=== PATIENT | male | born 1965 | race Caucasian/White ===

== ENCOUNTER 2025-07-03 10:17 | Outpatient (REF) | payer MEDICAID, SELFPAY ==
--- OUTSIDE RECORDS SUMMARY | 2025-07-03 11:05 | XMS_ITS | Clinical Summary ---
Author Organization [facility] ity Address [address] [place] [address] Care Team Providers Care Archives Technician Name Role Phone Unavailable Primary Care Provider Unavailabl e Social History Tobacco Use Types Packs/Day Years Used Date Smoking Tobacco: Never Assessed Sex and Gender Information Value Date Recorded Sex Assigned at Not on file Legal Sex Male 10:44 AM EST Gender Identity Not on file Sexual Orientation Not on file Plan of Treatment Health Maintenance Due Date Last Done Comments DTaP,Tdap,and Td Vaccines (1 - Tdap) 1983 Pneumococcal Vaccine: 50+ Ye ars (1 of 1 - PCV) 2014 Zoster Vaccines (1 of 2) 2014 COVID-19 Vaccine (1 - 2023-2 5 season) 2024 Depression Screening 11/21/2024 Influenza Vaccine (#1) 2025 RSV Immunization Adult Patie nts (1 - 1-dose 75+ series) 2039 HIB Vaccines Aged Out No longer eligi ble based on patient's age to complete this topic HPV Vaccines Aged Out No longer eligi ble based on patient's age to complete this topic Hepatitis A Vaccines Aged Out No long er eligible based on patient's age to complete this topic Hepatitis B Vaccines Aged Out No long er eligible based on patient's age to complete this topic IPV Vaccines Aged Out No longer eligi ble based on patient's age to complete this topic MMR Vaccines Aged Out No longer eligi ble based on patient's age to complete this topic Meningococcal ACWY Vaccine Aged Out N o longer eligible based on patient's age to complete this topic Meningococcal B Vaccine Aged Out No l onger eligible based on patient's age to complete this topic RSV Immunization Patients Un graham 20 months Aged Out No longer eligible b ased on patient's age to complete this topic Varicella Vaccines Aged Out No longer eligible based on patient's age to complete this topic
--- OUTSIDE RECORDS SUMMARY | 2025-07-03 11:05 | XMS_ITS | Clinical Summary ---
Author Organization [facility] Address [address] [place] [address] Care Team Providers Care Sales Agent Business Services Name Role Phone Aida Novoa PA-C Primary Care Provider [phone] Source Comments PLEASE NOTE, if this patient is a minor, it may be UNLAWFUL to discuss sensitive information that is contained in these records (such as FAMILY PLANNING, MENTAL HEALTH or SUBSTANCE ABUSE) with the minor patient's parent or other person without the patient's specific authorization.[facility] Allergies No known active allergies Medications blood-glucose meter monitoring kitIndications:Juanita betes mellitus without complication ([facility]) as needed for blood glucose monitoring Dispense Freeystyle 1 Each 03/04/20 21 Active lancing device miscIndications:Di abetes mellitus without complication ([facility]) 1 Device by miscellaneous route once daily 1 Each 1 03/04/20 21 Active lancets 28 gaugeIndications:D iabetes mellitus without complication ([facility]) USE DIRECTED TO TEST BLOOD SUGAR DAILY 100 Each 1 05/06/20 22 Active lisinopriL 10 mg tabletIndications: Essential hypertension, benign TAKE 1 TABLET BY MOUTH ONCE DAILY 28 Tablet 1 07/30/20 22 Active cholecalciferol (VITAMIN D3) 50 mcg (2,000 unit) capsule Take 125 mcg by mouth once daily 11/24/19 23 Active prazosin (MINIPRESS) 1 mg capsule Take 1 mg by mouth every evening 11/24/19 23 Active PURE COMFORT SAFETY LANCETS 30 gaugeIndications:D iabetes mellitus without complication ([facility]) CHECK GLUCOSE ONCE DAILY 100 Each 3 12/20/19 23 Active metFORMIN (GLUCOPHAGE) 1,000 mg tablet Take 1 Tablet by mouth 2 (two) times daily 180 Tablet 04/18/20 Active glyBURIDE (DIABETA) 2.5 mg tabletIndications: Diabetes mellitus without complication ([facility]) Take 1 Tablet by mouth once daily with breakfast 90 Tablet 04/18/20 Active ALCOHOL PREP PADS USE DIRECTED TO TEST BLOOD SUGAR 100 Each 2 05/09/20 Active blood sugar diagnostic (FREESTYLE LITE STRIPS) stripsIndications: Diabetes mellitus without complication ([facility]) Dx. E11.65 FREESTYLE LITE, USE TO CHECK BLOOD SUGAR ONCE DAILY 100 Each 3 10/25/20 Active simvastatin (ZOCOR) 10 mg tabletIndications: Mixed hyperlipidemia WYATT TRI TABLETA DIARIAMENTE EN LA NOCHE 30 Tablet 02/07/20 Active Active Problems Problem Noted Date Diagnosed Date Class 1 obesity due to exces s calories with serious comorbidity and body mass index (BMI) of 34.0 to 34.9 in adult 04/12/2023 Depression 01/12/2023 Vitamin D deficiency 01/12/2023 Essential hypertension, benign 03/04/2021 Uncontrolled type 2 diabetes mellitus with hyperglycemia ([facility]) 03/04/2021 Alcohol use disorder, moderate ([facility]) 0 03/04/2021 Overview (03/04/2021): Follows psych, therapist Yanique Rojas [phone] Resolved Problems Problem Noted Date Diagnosed Date Resolved Date Scalp abscess 11/24/2022 01/12/2023 Immunizations Immunization Administration Dates Next Due PFIZER COVID VACCINE, PURPLE CAP, 12+ 09/19/2021 ,01/26/2021,01/05/2021 PNEUMOCOCCAL CONJUGATE PCV 20 (Prevnar 20) 04/12 Pfizer COVID vaccine, COMIRN ATY, fajardo cap, 12+ 03/02/2022 TDAP 04/12/2023 ZOSTER VACCINE, RECOMBINANT (SHINGRIX) 3,03/04/2021 Family History Medical History Relation Name Comments Diabetes Brother No Known Problems Daughter Alcohol/Drug Abuse Father Diabetes Mother Diabetes Sister No Known Problems Son Relation Name Status Comments Brother Daughter Father Mother Sister Son Social History Tobacco Use Types Packs/Day Years Used Date Smoking Tobacco: Never Smokeless Tobacco: Never Tobacco Cessation:Counseling Given: Not Answered Alcohol Use Standard Drinks/Week Comments Yes 0 (1 standard drink = 0.6 oz pur e alcohol) 6-7 beers per week, not daily Social Connections Answer Date Recorded Connectedness 0 08/01/2024 Financial Resource Strain Answer Date R ecorded Financial Resource Strain 0 2020 Stress Answer Date Recorded Stress 0 03/04/2021 Physical Activity Answer Date Recorded Physical Activity 0 03/04/2021 Food Insecurity Answer Date Recorded Food 0 08/16/2024 Transportation Needs Answer Date Record ed Transportation 0 03/04/2021 Housing Stability Answer Date Recorded Housing 0 03/04/2021 Safety and Environment Answer Date Santiago rded Safety 0 03/04/2021 Utilities Answer Date Recorded Utilities 0 03/04/2021 Employment Answer Date Recorded Stress 0 08/01/2024 Sex and Gender Information Value Date Recorded Sex Assigned at Male 03/04/2021 11:26 AM PDT Legal Sex Male 7:47 AM PST Gender Identity Male 03/04/2021 11:26 AM PDT Sexual Orientation Straight 03/04/2021 11 :26 AM PDT 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 Not on file Not on file Not on file Last Filed Vital Signs Vital Sign Reading Time Taken Comments Blood Pressure 140/80 10/24/2023 3:18 PM EST Pulse 96 09/19/2023 1:51 PM EDT Temperature 36.8 C (98.3 F) 08/24/2023 10:11 AM EDT Respiratory Rate 18 08/24/2023 10:1 1 AM EDT Oxygen Saturation 98% 03/04/2021 2:28 PM EDT Inhaled Oxygen Concentration - - Weight 98.3 kg (216 lb 11.2 oz) 10/24/2023 3:18 PM EST Height 167.6 cm (5' 6 ) 04/12/2023 3:38 PM EDT Body Mass Index 34.98 04/12/2023 3:38 PM EDT Plan of Treatment Health Maintenance Due Date Last Done Comments Anxiety Screening 1964 Dental Examination [address] Colonography 2009 FIT/gFOBT 2009 Fecal DNA 2009 Flexible Sigmoidoscopy 2009 Retinopathy Screening 04/21/2023 04/21/2022 (Managed by Outside Provider) Depression Monitoring 07/13/2023 04/12/2023 , 11/25/2022, 03/04/2021 Hemoglobin A1c 12/20/2023 09/19/2023, 03/22, 04/12/2023 Annual Wellness (Adult): Ind icated (All Coverage) 04/12/2024 04/12/2023, 03/04/2021 Diabetes Foot Exam 04/12/2024 04/12/2023, 0 04/12/2023, 04/12/2023, Additional history exists LTBI Screening (#1) 04/12/2024 04/12/2023 Lipid Screening 04/12/2024 04/12/2023 Serum Creatinine 04/12/2024 04/12/2023, 04/12/2023 Urine Albumin Creatinine Rat io Screening 04/12/2024 04/12/2023 [id number] ( season) 2024 03/02/2022, 09/19/2021, 01/26/2021, Additional history exists Alcohol and Drug Screen 11/21/2024 04/12/20, 11/25/2022, 03/04/2021 Imm-Influenza (#1) 2025 Colonoscopy 03/21/2032 03/21/2022 (Ashlie torres by Outside Provider) Colorectal Cancer Screening 03/21/2032 Imm-DTaP/Tdap/Td (2 - Td or Tdap) 04/12/2033 023 HIV Screening Completed 04/12/2023 Hepatitis C Screening Completed 04/12/2023 Imm-Pneumococcal 50+ Completed 04/12/2023 Imm-Zoster, Recombinant Completed 04/12/2023, 03/04 Procedures Procedure Name Priority Date/Time Associated Diagnosis Comments HGBA1C W/MPG Routine 09/19/2023 2:03 PM EDT Type 2 diabetes mellitus with hyperglycemia, without long-term current use of insulin ([facility]) HIV 1/2 AG & AB W/RFLX (4TH GEN) Routine 04/12/2023 4:30 PM EDT Health maintenance examination Screening for viral disease QUANTIFERON-TB GOLD PLUS Routine 04/12/2023 4:30 PM EDT Health maintenance examination Screening examination for pulmonary tuberculosis COMPREHENSIVE METABOLIC PANEL Routine 04/12/2023 4:30 PM EDT Health maintenance examination Diabetes mellitus without complication (HCC-CMS) Essential hypertension, benign Alcohol use disorder, moderate (HCC-CMS) HEPATITIS C AB W/RFLX HCV RNA, QT, RT PCR Routine 04/12/2023 4:30 PM EDT Health maintenance examination Screening for viral disease LIPIDS W RFLX TO DIRECT LDL Routine 04/12/2023 4:30 PM EDT Health maintenance examination MICROALBUMIN/CREATINI NE RATIO, URINE, RANDOM Routine 04/12/2023 4:30 PM EDT Diabetes mellitus without complication (HCC-CMS) from Last 3 Months or Most Recently Relevant to Health Maintenance Results * (ABNORMAL) HGBA1C W/MPG (09/19/2023 2:03 PM EDT) HEMOGLOBIN A1C 10.4(H) <5.7 % of total Hgb [facility] Comment: For someone without known diabetes, a hemoglobin A1c value of 6.5% or greater indicates that they may have diabetes and this should be confirmed with a follow-up test. For someone with known diabetes, a value <7% indicates that their diabetes is well controlled and a value greater than or equal to 7% indicates suboptimal control. A1c targets should be individualized based on duration of diabetes, age, comorbid conditions, and other considerations. Currently, no consensus exists regarding use of hemoglobin A1c for diagnosis of diabetes for children. MEAN PLASMA GLUCOSE 293 mg/dL (calc) [facility] Blood Blood / Unknown 09/19/2023 2 :03 PM EDT 09/19/2023 2:04 PM EDT us Radha Catherine PA-C LAB - BLOOD DRAW Final Re sult [facility] [address] [address], [email or web address] [facility] [address] [place] [address] * QUANTIFERON-TB GOLD PLUS (04/12/2023 4:30 PM EDT) [facility] QUANTIFERON NEGATIVE NEGATIVE [email or web address] Comment: Negative test result. M. tuberculosis complex infection unlikely. NIL 0.05 IU/mL [email or web address] [facility] MITOGEN-NIL >10.00 IU/mL [email or web address] TB1-NIL 0.01 IU/mL [email or web address] [place] [employer] TB2-NIL 0.03 IU/mL [email or web address] Comment: The Nil tube value reflects the background interferon gamma immune response of the patient's blood sample. This value has been subtracted from the patient's displayed TB and Mitogen results. Lower than expected results with the Mitogen tube prevent false-negative Quantiferon readings by detecting a patient with a potential immune suppressive condition and/or suboptimal pre-analytical specimen handling. The TB1 Antigen tube is coated with the M. tuberculosis-specific antigens designed to elicit responses from TB antigen primed CD4+ helper T-lymphocytes. The TB2 Antigen tube is coated with the M. tuberculosis-specific antigens designed to elicit responses from TB antigen primed CD4+ helper and CD8+ cytotoxic T-lymphocytes. For additional information, please refer to https://education.[employer]/faq/OVA621 (This link is being provided for informational/ educational purposes only.) Blood Blood / Unknown 04/12/2023 4 :30 PM EDT 04/12/2023 4:30 PM EDT Jessica Santillan NP LAB - BLOOD DRAW Edited Result - Final [email or web address] [address] [address], [email or web address] [facility] [address] [place] [address] * HEPATITIS C AB W/RFLX HCV RNA, QT, RT PCR (04/12/2023 4:30 PM EDT) [facility] HEPATITIS C ANTIBODY NON-REACT MARYANNE NON-REACT MARYANNE [email or web address] [place] SIGNAL TO CUT-OFF 0.03 <1.00 [facility] Comment: HCV antibody was non-reactive. There is no laboratory evidence of HCV infection. In most cases, no further action is required. However, if recent HCV exposure is suspected, a test for HCV RNA (test code 34341) is suggested. For additional information please refer to http://[employer]/faq/PRB03c7 (This link is being provided for informational/ educational purposes only.) Blood Blood / Unknown 04/12/2023 4 :30 PM EDT 04/12/2023 4:30 PM EDT Jessica Santillan NP LAB - BLOOD DRAW Edited Result - Final [facility] [address] [place] [id number], [email or web address] [address] [address] * HIV 1/2 AG & AB W/RFLX (4TH GEN) (04/12/2023 4:30 PM EDT) HIV AG/AB, 4TH GEN NON-REAC TIVE NON-REAC TIVE [facility] Comment: HIV-1 antigen and HIV-1/HIV-2 antibodies were not detected. There is no laboratory evidence of HIV infection. PLEASE NOTE: This information has been disclosed to you from records whose confidentiality may be protected by state law. If your state requires such protection, then the state law prohibits you from making any further disclosure of the information without the specific written consent of the person to whom it pertains, or as otherwise permitted by law. A general authorization for the release of medical or other information is NOT sufficient for this purpose. For additional information please refer to http://[employer]/faq/ZFB905 (This link is being provided for informational/ educational purposes only.) The performance of this assay has not been clinically validated in patients less than 2 years old. Blood Blood / Unknown 04/12/2023 4 :30 PM EDT 04/12/2023 4:30 PM EDT us Jessica Snatillan NP LAB - BLOOD DRAW Final Result Performing Organization Address [facility]/ZIP Co de Phone Number [email or web address] [address] [address], [email or web address] [address] [address] * (ABNORMAL) Lipid Panel (with Reflex Direct LDL) (04/12/2023 4:30 PM EDT) CHOLESTEROL, TOTAL 234(H) <200 mg/dL [email or web address] HDL CHOLESTEROL 53 > OR = 40 mg/dL [email or web address] TRIGLYCERIDES 175(H) <150 mg/dL [email or web address] LDL-CHOLESTEROL 150(H) 99 mg/dL (calc) [email or web address] Comment: Reference range: <100 Desirable range <100 mg/dL for primary prevention; <70 mg/dL for patients with CHD or diabetic patients with > or = 2 CHD risk factors. LDL-C is now calculated using the Carmen calculation, which is a validated novel method providing better accuracy than the Friedewald equation in the estimation of LDL-C. Harrison BRAND et al. ELLIE. 2013;310(19): 1651-0513 (http://education.[employer]Trade/faq/GKX427) CHOL/HDLC RATIO 4.4 <5.0 (calc) [email or web address] NON-HDL CHOLESTEROL 181(H) <130 mg/dL (calc) [email or web address] Comment: For patients with diabetes plus 1 major ASCVD risk factor, treating to a non-HDL-C goal of <100 mg/dL (LDL-C of <70 mg/dL) is considered a therapeutic option. Blood Blood / Unknown 04/12/2023 4 :30 PM EDT 04/12/2023 4:30 PM EDT us Jessica Santillan NP LAB - BLOOD DRAW Final Result Performing Organization Address City/[facility]/ZIP Co de Phone Number [email or web address] [facility] [address] [address], [email or web address] [address] [address] * MICROALBUMIN/CREATININE RATIO, URINE, RANDOM (04/12/2023 4:30 PM EDT) CREATININE, RANDOM URINE 26 20 - 320 mg/dL [facility] MICROALBUMIN 0.7 mg/dL [facility] Comment: Reference Range Not established MICROALBUMIN/CREA TININE RATIO, RANDOM URINE 27 <30 mcg/mg creat [facility] Comment: The ADA defines abnormalities in albumin excretion as follows: Albuminuria Category Result (mcg/mg creatinine) Normal to Mildly increased <30 Moderately increased 30-299 Severely increased > OR = 300 The ADA recommends that at least two of three specimens collected within a 3-6 month period be abnormal before considering a patient to be within a diagnostic category. Urine Urine specimen / Unknown 04/12/2023 4:30 PM EDT 04/12/2023 4:30 PM EDT Jessica Santillan CERTIFIED HEALTH EDUCATION SPECIALIST LAB URINE AMBULATORY Final Res ult [facility] [address] [place] [id number], [facility] [address] [place] [phone] * (ABNORMAL) CMP (04/12/2023 4:30 PM EDT) GLUCOSE 442(H) 65 - 99 mg/dL [facility] Comment: Verified by repeat analysis. Fasting reference interval For someone without known diabetes, a glucose value >125 mg/dL indicates that they may have diabetes and this should be confirmed with a follow-up test. UREA NITROGEN (BUN) 15 7 - 25 mg/dL [facility] CREATININE (blood) 0.99 0.70 - 1.30 mg/dL [facility] EGFR 88 > OR = 60 mL/min/1 .73m2 [facility] Comment: The eGFR is based on the CKD-EPI 2020 equation. To calculate the new eGFR from a previous Creatinine or Cystatin C result, go to https://www.kidney.org/professionals/ kdoqi/gfr%5Fcalculator BUN/CREATININE RATIO NOT APPLICABLE 6 - [facility] SODIUM 137 135 - 146 mmol/L [facility] POTASSIUM 4.2 3.5 - 5.3 mmol/L [facility] CHLORIDE 100 98 - 110 mmol/L [email or web address] CARBON DIOXIDE 26 20 - 32 mmol/L [email or web address] CALCIUM 9.8 8.6 - 10.3 mg/dL [email or web address] PROTEIN, TOTAL 7.8 6.1 - 8.1 g/dL [email or web address] ALBUMIN 4.6 3.6 - 5.1 g/dL [email or web address] GLOBULIN 3.2 1.9 - 3.7 g/dL (calc) [email or web address] ALBUMIN/GLOBUL IN RATIO 1.4 1.0 - 2.5 (calc) [email or web address] BILIRUBIN, TOTAL 0.3 0.2 - 1.2 mg/dL [email or web address] ALKALINE PHOSPHATASE 93 35 - 144 U/L [email or web address] AST 18 10 - 35 U/L [email or web address] ALT 16 9 - 46 U/L [email or web address] Blood Blood / Unknown 04/12/2023 4 :30 PM EDT 04/12/2023 4:30 PM EDT Jessica Santillan NP LAB - BLOOD DRAW Edited Result - Final [email or web address] [address] [address], [employer] [address] [phone] from Last 3 Months or Most Recently Relevant to Health Maintenance Insurance [employer] [address] [place] [place] [address] [facility] Medicaid Address: [facility] [id number] [place] [address] Care Teams Sales Agent Business Services Relationship Specialty Start Date End Date Aida Novoa PA-C [facility] [place] [address] PCP - General Primary Care 11/15/23
[2025-07-03 11:18] LABS: MANUAL DIFF FLAG NO
[2025-07-03 11:31] LABS: Hematocrit 44.6 % (42.0-52.0); Hemoglobin 14.7 g/dl (14.0-18.0); Imm Gran Abs Auto 0.01 X10*3/uL (0.00-0.03); Imm Gran Pct Auto 0.2 % (0.0-0.4); Lymphocytes Absolute Auto 2.0 X10*3/uL (1.2-4.9); Mean Corpuscular HGB Conc 33.0 g/dl (31.0-36.0); Mean Corpuscular Hemoglobin 29.6 pg (27.0-33.0); Mean Corpuscular Volume 89.9 fL (80.0-98.0); NRBC Abs Auto 0.000 X10*3/uL (0.0-0.012); NRBC Pct Auto 0.0 /100WBC (0.0-0.2); Platelet Count 227 X10*3/uL (160-400); Red Blood Count 4.96 X10*6/uL (4.60-5.80); White Blood Count 5.9 X10*3/uL (4.8-10.8)
[2025-07-03 12:02] LABS: Microalbum/Creatinine Ratio Ur 137.6 ug/mg cr (<30)
[2025-07-03 12:18] LABS: Hemoglobin A1C 382.3614 umol/L; Total Hemoglobin (HGBA1C) 3953.5015 umol/L
[2025-07-03 14:21] LABS: Alanine Aminotransferase 18 U/L (0-40); Albumin Level 4.8 g/dL (3.5-5.0); Alkaline Phosphatase 89 U/L (39-117); Anion Gap 13 (12-20); Aspartate Amino Transferase 22 U/L (5-37); Blood Urea Nitrogen 7 mg/dL (9-16); Calcium 9.2 mg/dL (8.4-10.2); Carbon Dioxide 30 mmol/L (22-29); Chloride 101 mmol/L (96-108); Cholesterol 208 mg/dL (<200); Estimated Glomerular Filt Rate > 60; HDL Cholesterol 42 mg/dL (>40); Potassium 3.3 mmol/L (3.3-5.1); Sodium 141 mmol/L (135-145); Total Protein 8.1 g/dL (6.5-8.0); Triglycerides 93 mg/dL (<150)
[2025-07-03 14:23] LABS: Free T4 (Free Thyroxine) 1.17 ng/dL (0.71-1.85); Thyroid Stimulating Hormone 0.60 uIU/mL (0.32-4.0)
[2025-07-04 04:21] LABS: HBS Num1 0.73 mIU/mL (0-7.99); HBc Num1 0.03 S/CO (0.00-0.79); HBsAGNum1 0.44 S/CO (0.00-0.99); HIV Num 1 0.04 S/CO (0.00-0.99); Hepatitis B Surface Antigen Negative (Negative); ~HepC Num1 0.10 S/CO (0.00-0.79); ~Hepatitis B Surface Antibody NONREACTIVE (Nonreactive); ~Hepatitis C Antibody Nonreactive (Nonreactive)
[2025-07-05 03:55] LABS: ~Hepatitis A Antibody IgG 9.24 S/CO (0.00-0.99)
[2025-07-05 23:59] LABS: TS Negative Control Passed; TS Panel A 0; TS Panel B 0; TS Positive Control Passed; TSpotTB Negative (Negative)
== END 2025-07-03 10:18 | disposition home or self-care (01) ==
LOC: HO.HHCL 10:17
PROVIDERS: PCP Family Medicine; Visit Provider Family Medicine
DX: Z00.00 Encounter for general adult medical examination without abnormal findings (principal); Z11.1 Encounter for screening for respiratory tuberculosis; Z11.59 Encounter for screening for other viral diseases; Z11.4 Encounter for screening for human immunodeficiency virus [HIV]; Z11.3 Encounter for screening for infections with a predominantly sexual mode of transmission; E11.9 Type 2 diabetes mellitus without complications; I10 Essential (primary) hypertension; F33.9 Major depressive disorder, recurrent, unspecified; F10.230 Alcohol dependence with withdrawal, uncomplicated; E55.9 Vitamin D deficiency, unspecified; Z68.34 Body mass index [BMI] 34.0-34.9, adult; Z71.3 Dietary counseling and surveillance; Z71.82 Exercise counseling
CPT/HCPCS: 36415; 80048; 80061; 80076; 82043; 82306; 82570; 83036; 84439; 84443; 85025; 86481; 86592; 86704; 86706; 86708; 86803; 87340; 87389